=== PATIENT | male | born 1955 | race Caucasian/White ===

== ENCOUNTER 2018-02-12 00:07 | Emergency (ER) | payer OTHER ==
[~2018-02-12] VITALS: Ht 172.7 cm; Wt 120.0 kg
[2018-02-12] MEDS ORDERED: IBUP-2071 PO (00:15)
[2018-02-12] MEDS ORDERED: TRAZ-144 PO (00:15)
[2018-02-12] MEDS ORDERED: QUET25TA PO (00:15)
[2018-02-12] MEDS ORDERED: OMEP20 PO (00:15)
[2018-02-12] MEDS ORDERED: BuPROPion HCL XL 150 MG ER TABLET PO ONE (00:30)
[2018-02-12] MEDS ORDERED: QUEtiapine FUMARATE 25 MG TABLET PO ONE (00:30)
[2018-02-12] MEDS ORDERED: ARIPiprazole 10 MG TABLET PO ONE (00:30)
[2018-02-12 06:09] VITALS: BP 141/85
[2018-02-12] MEDS ORDERED: DIABETES PO (10:11)
[2018-02-12] MEDS ORDERED: BLOOD PRESSURE PO (10:11)
[2018-02-12] MEDS ORDERED: PROSTATE PO (10:11)
[2018-02-12] MEDS ORDERED: ASPI-556 PO (10:11)
== END 2018-02-12 06:36 | disposition home or self-care (01) ==
LOC: EMS 00:10
DX: F25.9 Schizoaffective disorder, unspecified (principal); F31.9 Bipolar disorder, unspecified; E11.9 Type 2 diabetes mellitus without complications; I10 Essential (primary) hypertension; E78.00 Pure hypercholesterolemia, unspecified; F17.210 Nicotine dependence, cigarettes, uncomplicated
CPT/HCPCS: 99284

== ENCOUNTER 2018-02-12 09:44 | Emergency (ER) | payer OTHER ==
[~2018-02-12] VITALS: Ht 172.7 cm; Wt 118.1 kg
[~2018-02-12 09:44] MED LIST: IBUP-2071 PO; OMEP20 PO; QUET25TA PO; TRAZ-144 PO
[2018-02-12] MEDS ORDERED: PROSTATE PO (10:11)
[2018-02-12] MEDS ORDERED: BLOOD PRESSURE PO (10:11)
[2018-02-12] MEDS ORDERED: DIABETES PO (10:11)
[2018-02-12] MEDS ORDERED: ASPI-556 PO (10:11)
[2018-02-12 11:15] LABS: AMPHET/METH SCREEN,URINE NEGATIVE (NEGATIVE); BARBITURATE SCREEN, URINE NEGATIVE (NEGATIVE); BENZODIAZEPINES SCREEN,URINE NEGATIVE (NEGATIVE); CANNABINOID SCREEN,URINE NEGATIVE (NEGATIVE); COCAINE SCREEN,URINE NEGATIVE (NEGATIVE); METHADONE SCREEN, URINE NEGATIVE (NEGATIVE); OPIATE SCREEN,URINE NEGATIVE (NEGATIVE)
[2018-02-12 11:16] LABS: PHENCYCLIDINE SCREEN,URINE NEGATIVE (NEGATIVE)
[2018-02-12 11:18] LABS: BASOPHILS % (AUTO) 0.7 % (0.0-2.0); EOSINOPHILS % (AUTO) 3.5 % (1.0-6.0); HEMATOCRIT 36.9 % (41-53); HEMOGLOBIN 12.6 g/dL (13.5-17.5); LYMPHOCYTES # (AUTO) 1.8 K/uL (1.0-4.8); LYMPHOCYTES % (AUTO) 23.2 % (22.0-44.0); MEAN CORPUSCULAR HEMOGLOBIN 31.7 pg (26.0-34.0); MEAN CORPUSCULAR HGB CONC 34.3 G/dL (31.0-37.0); MEAN CORPUSCULAR VOLUME 92 fL (80-100); MONOCYTES # (AUTO) 0.6 K/uL (0.1-1.0); MONOCYTES % (AUTO) 7.7 % (2.0-9.0); NEUTROPHILS # (AUTO) 4.9 K/uL (1.8-7.7); NEUTROPHILS % (AUTO) 64.9 % (40.0-70.0); PLATELET COUNT (AUTO) 231 K/uL (150-450); RED BLOOD CELL COUNT(AUTO) 3.99 MIL/uL (4.50-5.90); RED CELL DISTRIBUTION WIDTH 14.2 % (11.5-14.5)
[2018-02-12 11:31] LABS: ANION GAP 8 mmol/L (8-16); CALCIUM, TOTAL 9.1 mg/dL (8.8-10.5); CARBON DIOXIDE 29 mmol/L (22-29); CHLORIDE 104 mmol/L (98-107); CREATININE 0.72 mg/dL (0.60-1.30); GLOMERULAR FILTR. RATE CALC > 60 mL/min (>60); GLUCOSE,RANDOM 159 mg/dL (70-110); POTASSIUM 4.1 mmol/L (3.5-5.1); SODIUM SERUM 141 mmol/L (136-145); UREA NITROGEN, BLOOD 24 mg/dL (7-18)
[2018-02-12 11:36] LABS: ALANINE AMINOTRANSFERASE 23 U/L (12-78); ALBUMIN 3.6 g/dL (3.4-5.0); ALKALINE PHOSPHATASE 76 U/L (46-116); ASPARTATE AMINOTRANSFERASE 15 U/L (15-37); BILIRUBIN,TOTAL 1.1 mg/dL (0.1-1.0); TOTAL PROTEIN, SERUM 7.9 g/dL (6.4-8.2)
[2018-02-12] MEDS ORDERED: QUEtiapine FUMARATE 100 MG TABLET PO ONE (12:00)
[2018-02-12] MEDS ORDERED: LORazepam 2 MG TABLET PO ONE (12:00)
[2018-02-12] MEDS ORDERED: LORazepam 2 MG TABLET PO PRN (12:30)
[2018-02-12] MEDS ORDERED: QUEtiapine FUMARATE 100 MG TABLET PO PRN (12:30)
[2018-02-12 16:00] VITALS: BP 113/73
[2018-02-12] MEDS ORDERED: QUEtiapine FUMARATE 25 MG TABLET PO SCH (21:00)
[2018-02-12] MEDS ORDERED: BuPROPion HCL XL 150 MG ER TABLET PO SCH (21:00)
== END 2018-02-12 16:43 | disposition other institution (70) ==
LOC: EMS 09:45 → EEVIPCON 09:45 → EMS 16:43
DX: F25.9 Schizoaffective disorder, unspecified (principal); F31.9 Bipolar disorder, unspecified; I10 Essential (primary) hypertension; E78.00 Pure hypercholesterolemia, unspecified; E11.9 Type 2 diabetes mellitus without complications; F17.210 Nicotine dependence, cigarettes, uncomplicated; Z76.0 Encounter for issue of repeat prescription
CPT/HCPCS: 36415; 80053; 80307; 85025; 99285; G0480